=== PATIENT | female | born 1960 | race Caucasian/White ===

== ENCOUNTER 2017-05-29 09:29 | Emergency (ER) | payer OTHER ==
[~2017-05-29] VITALS: Ht 154.9 cm; Wt 74.0 kg
[2017-05-29 09:34] VITALS: BP 178/80; PULSE 74; RESP 16; TEMP 98.4; O2SAT 97
--- NOTE | 2017-05-29 09:39 | PD ---
HPI Chief Complaint: left flank pain Time Seen by Provider: 09:39 Travel History International Travel<30 days: No Contact w/Intl Traveler<30days: No Traveled to known affect area: No History of Present Illness HPI 57-year-old female came to the emergency room with history of left flank pain that started 4 days ago. During that time there was hematuria as well. The pain seemed to move from the flank to the left lower quadrant and has been waxing and waning. This morning the pain was the worse and when she went to work she got really nauseous. She decided to come to the emergency room. She has never had this kind of pain in the past. No history of kidney stones. No history of any more hematuria since the first time. Vital signs otherwise stable. She has been getting some chills but no recorded fever. No aggravating or relieving factors. PFSH Past Medical History Narrative Medical List of her past medical, surgical, social and family history is reviewed from the nursing note. Social History Tobacco Use: Yes Allergies-Medications (Allergen,Severity, Reaction): Coded Allergies: oseltamivir (Verified Allergy, Severe, Rash, 05/29/17) Comments List of her allergies reviewed from the nursing note. Reported Meds & Prescriptions Reported Meds & Active Scripts Active Flomax (Tamsulosin HCl) 0.4 Mg Cap 0.4 Mg PO HS Colace (Docusate Sodium) 100 Mg Capsule 1 Tab PO BID NEB Zofran Odt (Ondansetron Odt) 4 Mg Tab 4 Mg SL Q6HR PRN Hydrocodone-Acetaminophen 5-325 mg Tab 1 Tab PO Q6H PRN Reported Fenofibrate 54 Mg Tab 67 Mg PO DAILY Amlodipine (Amlodipine Besylate) 5 Mg Tab 5 Mg PO DAILY Lisinopril 20 Mg Tab 20 Mg PO DAILY Atorvastatin (Atorvastatin Calcium) 20 Mg Tab 20 Mg PO HS Cetirizine (Cetirizine HCl) 10 Mg Chew 10 Mg CHEW DAILY Narrative Medication List of her home medications reviewed from the nursing note. Review of Systems Except as stated in HPI: all other systems reviewed are Neg Physical Exam Narrative GENERAL: Awake, alert, moderate distress SKIN: Focused skin assessment warm/dry. HEAD: Atraumatic. Normocephalic. EYES: Pupils equal and round. No scleral icterus. No injection or drainage. ENT: No nasal bleeding or discharge. Mucous membranes pink and moist. NECK: Trachea midline. No JVD. CARDIOVASCULAR: Regular rate and rhythm. No murmur appreciated. RESPIRATORY: No accessory muscle use. Clear to auscultation. Breath sounds equal bilaterally. GASTROINTESTINAL: Abdomen soft, non-tender, nondistended. Hepatic and splenic margins not palpable. Mild CVA tenderness on the left side MUSCULOSKELETAL: No obvious deformities. No clubbing. No cyanosis. No edema. NEUROLOGICAL: Awake and alert. No obvious cranial nerve deficits. Motor grossly within normal limits. Normal speech. PSYCHIATRIC: Appropriate mood and affect; insight and judgment normal. Data Data Last Documented VS Vital Signs Date Time Temp Pulse Resp B/P (MAP) Pulse Ox O2 Delivery O2 Flow Rate FiO2 05/29/17 13:05 05/29/17 13:05 62 14 98 Room Air 05/29/17 09:34 98.4 Orders Orders Complete Blood Count With Diff (05/29/17 09:49) Comprehensive Metabolic Panel (05/29/17 09:49) Urinalysis - C+S If Indicated (05/29/17 09:49) Ct Abd/Pel W/O Iv Contrast (05/29/17 09:49) Ecg Monitoring (05/29/17 09:49) Iv Access Insert/Monitor (05/29/17 09:49) Tamsulosin (Flomax) (05/29/17 11:30) Sodium Chlor 0.9% 1000 Ml Inj (Ns 1000 M (05/29/17 11:30) Ketorolac Inj (Toradol Inj) (05/29/17 11:30) Ondansetron Inj (Zofran Inj) (05/29/17 11:30) Labs Laboratory Tests Test 05/29/17 10:00 05/29/17 10:05 Urine Collection Type CLEAN CATCH Urine Color STRAW Urine Turbidity SLIGHT Urine pH 5.5 Urine Specific [place] 1.014 Urine Protein NEG mg/dL Urine Glucose (UA) NEG mg/dL Urine Ketones NEG mg/dL Urine Occult Blood SMALL Urine Nitrite NEG Urine Bilirubin NEG Urine Leukocyte Esterase NEG Urine RBC 4-9 /hpf Urine Squamous Epithelial Cells 6-8 /hpf Urine Amorphous Sediment FEW Microscopic Urinalysis Comment CULT NOT INDICATED Urine Collection Time 1000 White Blood Count 13.2 TH/MM3 Red Blood Count 4.73 MIL/MM3 Hemoglobin 13.8 GM/DL Hematocrit 40.6 % Mean Corpuscular Volume 85.9 FL Mean Corpuscular Hemoglobin 29.1 PG Mean Corpuscular Hemoglobin Concent 33.9 % Red Cell Distribution Width 13.0 % Platelet Count 363 TH/MM3 Mean Platelet Volume 8.7 FL Neutrophils (%) (Auto) 65.9 % Lymphocytes (%) (Auto) 16.6 % Monocytes (%) (Auto) 10.7 % Eosinophils (%) (Auto) 3.9 % Basophils (%) (Auto) 2.9 % Neutrophils # (Auto) 8.7 TH/MM3 Lymphocytes # (Auto) 2.2 TH/MM3 Monocytes # (Auto) 1.4 TH/MM3 Eosinophils # (Auto) 0.5 TH/MM3 Basophils # (Auto) 0.4 TH/MM3 CBC Comment DIFF FINAL Differential Comment Blood Urea Nitrogen 15 MG/DL Creatinine 0.76 MG/DL Random Glucose 89 MG/DL Total Protein 8.1 GM/DL Albumin 3.9 GM/DL Calcium Level 8.9 MG/DL Alkaline Phosphatase 75 U/L Aspartate Amino Transf (AST/SGOT) 31 U/L Alanine Aminotransferase (ALT/SGPT) 57 U/L Total Bilirubin 0.5 MG/DL Sodium Level 138 MEQ/L Potassium Level 3.8 MEQ/L Chloride Level 105 MEQ/L Carbon Dioxide Level 24.2 MEQ/L Anion Gap 9 MEQ/L Estimat Glomerular Filtration Rate 78 ML/MIN [facility] Medical Decision Making Medical Screen Exam Complete: Yes Emergency Medical Condition: Yes Medical Record Reviewed: Yes Differential Diagnosis Ureteral colic, pyelonephritis, musculoskeletal pain Narrative Course 11:02 AM blood test results are back. Patient has slight leukocytosis. UA shows some rbc's but otherwise negative for UTI. Awaiting for the CT scan of the abdomen and pelvis to be done and evaluated. 11:[address] scan was suggestive off 5 mm stone in the left UPJ. Patient was given Flomax, IV fluid bolus, Toradol and Zofran. I had a lengthy discussion with the patient regarding the stone as well as the management. I answered all her questions to the best of my ability. I will discharge her home with prescription for the medications as well as follow-up with urology. Procedures EKG Prior to Arrival: No Diagnosis Primary Impression: Ureteral colic Referrals: Johnny Almaguer MD 3 days Additional Instructions: Please return to the ER if the condition worsens or any other new concerns. Otherwise follow-up with the urologist whose name and number been given to you on this discharge instruction. Please call them now to get an appointment. Medications as per the prescription direction. The pain medication will make you groggy and hence he should not be driving while you're on them. Med/Other Pt SpecificInfo: Prescription(s) given Scripts Tamsulosin (Flomax) 0.4 Mg Cap 0.4 MG PO HS for Manage Prostate Problems, #10 CAP 0 Refills Prov: Polo Higgins MD 05/29/17 Docusate Sodium (Colace) 100 Mg Capsule 1 TAB PO BID NEB, #10 Prov: Polo Higgins MD 05/29/17 Ondansetron Odt (Zofran Odt) 4 Mg Tab 4 MG SL Q6HR Y for Nausea/Vomiting, #15 TAB 0 Refills Prov: Polo Higgins MD 05/29/17 Hydrocodone-Acetaminophen (Hydrocodone-Acetaminophen) 5-325 mg Tab 1 TAB PO Q6H Y for PAIN, #15 TAB 0 Refills Prov: Polo Higgins MD 05/29/17 Disposition: 01 DISCHARGE HOME Condition: Stable Polo Higgins MD May 29, 2017 09:39
[2017-05-29] MEDS ORDERED: ATOR20TA15 PO (09:54)
[2017-05-29] MEDS ORDERED: AMLO5TAB2 PO (09:54)
[2017-05-29] MEDS ORDERED: FENO54TA PO (09:54)
[2017-05-29] MEDS ORDERED: LISI-515 PO (09:54)
[2017-05-29] MEDS ORDERED: CETI10CH CHEW (09:54)
[2017-05-29 10:10] LABS: BLOOD, URINE SMALL (NEG); GLUCOSE,URINE NEG (NEG); KETONE, URINE NEG (NEG); NITRITE,URINE NEG (NEG); PH, URINE 5.5 (5.0-8.5)
[2017-05-29 10:13] LABS: AUTOMATED NEUTROPHIL # 8.7 TH/MM3 (1.8-7.7); BASOPHIL # 0.4 TH/MM3 (0-0.2); BASOPHIL % 2.9 % (0.0-2.0); EOSINOPHIL # 0.5 TH/MM3 (0-0.4); EOSINOPHIL % 3.9 % (0.0-4.0); HEMATOCRIT 40.6 % (35.0-46.0); HEMO FLAGS DIFF FINAL; LYMPH % 16.6 % (9.0-44.0); LYMPHOCYTE # 2.2 TH/MM3 (1.0-4.8); MEAN CELL VOLUME 85.9 FL (80.0-100.0); MEAN CORPUSCULAR HEMOGLOBIN 29.1 PG (27.0-34.0); MEAN CORPUSCULAR HGB CONC 33.9 % (32.0-36.0); MONO % 10.7 % (0.0-8.0); NEUT % 65.9 % (16.0-70.0); PLATELET COUNT 363 TH/MM3 (150-450); RED BLOOD COUNT 4.73 MIL/MM3 (4.00-5.30); WHITE BLOOD COUNT 13.2 TH/MM3 (4.0-11.0)
[2017-05-29 10:20] LABS: METHOD OF COLLECTION CLEAN CATCH; URINE COLOR STRAW (YELLW/STRAW)
[2017-05-29 10:21] LABS: CHLORIDE 105 MEQ/L (98-107); POTASSIUM 3.8 MEQ/L (3.5-5.1); SODIUM (NA) 138 MEQ/L (136-145)
[2017-05-29 10:21] LABS: COMMENT (UR) CULT NOT INDICATED; COMMENT2 (UR) MUCOUS PRESENT; CULTURE IF INDICATED CULT NOT INDICATED
[2017-05-29 10:25] LABS: ANION GAP 9 MEQ/L (5-15); BICARBONATE 24.2 MEQ/L (21.0-32.0); BLOOD UREA NITROGEN 15 MG/DL (7-18)
[2017-05-29 10:28] LABS: ALT (GPT) 57 U/L (10-53); AST (GOT) 31 U/L (15-37); GLOMERULAR FILTRATION RATE 78 ML/MIN (>89)
[2017-05-29 10:30] LABS: TOTAL BILIRUBIN ADULT 0.5 MG/DL (0.2-1.0)
[2017-05-29 10:31] LABS: ALKALINE PHOSPHATASE 75 U/L (45-117)
[2017-05-29 11:10] VITALS: BP 141/73; PULSE 85; RESP 16; O2SAT 98
--- NOTE | 2017-05-29 11:24 | RADRPT ---
EXAM DATE/TIME: 05/29/2017 10:55 [place] COMPARISON: No previous studies available for comparison. INDICATIONS : Left flank pain. Hematuria. ORAL CONTRAST: No oral contrast ingested. RADIATION DOSE: 14.66 CTDIvol (mGy) MEDICAL HISTORY : Hypertension. SURGICAL HISTORY : Cholecystectomy. section. ENCOUNTER: Initial ACUITY: 4 - 6 days PAIN SCALE: 5/10 LOCATION: Left flank TECHNIQUE: Volumetric scanning of the abdomen and pelvis was performed. Using automated exposure control and ad justment of the mA and/or kV according to patient size, radiation dose was kept as low as reasonably achievable to obtain optimal diagnostic quality images. DICOM format image data is available electro nically for review and comparison. FINDINGS: Right kidney/ureter: The right kidney is normal in size. No stones are seen. There is no hydronephrosis. The right ureter is followed throughout its course and is unremarkable in appearance. Left kidney/ureter: There is mild hydronephrosis and postobstructive change. There is a 5 mm stone seen in the proximal a spect of the left ureter at the ureteral pelvic junction. The distal portions of left ureter are norm al in caliber. Bladder: No stones are seen within the bladder. CT source data: The limited portion of lung bases visualized is clear. The appearance of the liver, spleen, pancreas and adrenal glands is within normal limits. There is no significant retroperitoneal lymphadenopathy. No free air or free fluid is seen. The visualized loops of small and large bowel are unremarkable. There is no free fluid within the pelvis. No iliac or ing uinal adenopathy is present. CONCLUSION: 1. There is a 5 mm stone in the proximal left ureter with mild postobstructive changes involving the left kidney. Mj Garcia MD on May 29, 2017 at 11:20 Board Certified Radiologist. This report was verified electronically.
[2017-05-29] MEDS ORDERED: SODIUM CHLOR 0.9% 1000 ML INJ 1,000 ML IV ONE (11:30)
[2017-05-29] MEDS ORDERED: ONDANSETRON HCL 4 MG/2 ML VIAL IV PUSH ONE (11:30)
[2017-05-29] MEDS ORDERED: TAMSULOSIN HCL 0.4 MG CAP PO ONE (11:30)
[2017-05-29] MEDS ORDERED: KETOROLAC TROMETHAMINE 30 MG/ML (IVP) VIAL IV PUSH ONE (11:30)
[2017-05-29] MEDS ORDERED: COLA100C PO (11:47)
[2017-05-29] MEDS ORDERED: TAMS5CAP PO (11:47)
[2017-05-29] MEDS ORDERED: ZOFR4TAB3 SL (11:47)
[2017-05-29] MEDS ORDERED: HYDR-3516 PO (11:47)
[2017-05-29 13:05] VITALS: BP 142/62; PULSE 62; RESP 14; O2SAT 98
== END 2017-05-29 13:15 | disposition home or self-care (01) ==
LOC: PHED 09:29
DX: N23 Unspecified renal colic (principal); Z72.0 Tobacco use
CPT/HCPCS: 74176; 80053; 81001; 85025; 96361; 96374; 96375; 99285; J1885; J2405; J7030